=== PATIENT | female | born 1995 | race Asian ===

== ENCOUNTER 2017-12-01 13:26 | Outpatient (RCR) | payer OTHER | END 2017-12-31 | LOC: M OT 13:26 | DX: Z47.89 Encounter for other orthopedic aftercare (principal); M65.4 Radial styloid tenosynovitis [de Quervain] | CPT/HCPCS: 97110 ==

== ENCOUNTER 2018-01-05 13:38 | Outpatient (RCR) | payer OTHER | END 2018-01-30 | LOC: M OT 13:38 | DX: M65.4 Radial styloid tenosynovitis [de Quervain] (principal) ==

== ENCOUNTER → 2019-09-22 | Outpatient (CLI) | payer SELFPAY | LOC: M LABSMTC 14:11 | PROVIDERS: ATTEND Pediatrics | DX: Z20.828 Contact with and (suspected) exposure to other viral communicable diseases (principal); Z11.59 Encounter for screening for other viral diseases ==